=== PATIENT | female | born 1975 | race Caucasian/White ===

== ENCOUNTER 2021-01-27 09:49 | Outpatient (REF) | payer OTHER, SELFPAY ==
[2021-02-01 14:07] LABS: HPV mRNA E6/E7 rflx Not Detected (Not Detected)
== END 2021-01-27 09:50 | disposition home or self-care (01) ==
LOC: HO.LAB 09:49
PROVIDERS: PCP Internal Medicine; Visit Provider Advanced Practice Midwife
DX: Z01.411 Encounter for gynecological examination (general) (routine) with abnormal findings (principal); Z11.51 Encounter for screening for human papillomavirus (HPV); N93.9 Abnormal uterine and vaginal bleeding, unspecified; R23.2 Flushing; Z80.3 Family history of malignant neoplasm of breast
CPT/HCPCS: 87624; 88142